=== PATIENT | male | born 1975 | race Caucasian/White ===

== ENCOUNTER 2017-02-17 10:56 | Outpatient (CLI) | payer OTHER ==
[2017-02-17 11:32] LABS: INR-International Normal Ratio 1.3; Prothrombin Time 16.3 SEC (12.0-14.7)
[2017-02-17 12:22] LABS: Follow-up Coag Comp? YES; Follow-up Result - Coag REPORT FAXED
== END 2017-02-17 10:57 | disposition home or self-care (01) ==
LOC: NAV LABSP 10:56
PROVIDERS: ATTEND Physician Assistant
DX: I80.9 Phlebitis and thrombophlebitis of unspecified site (principal); I87.2 Venous insufficiency (chronic) (peripheral)
CPT/HCPCS: 85610